=== PATIENT | female | born 1975 | race Hispanic/Latino ===

== ENCOUNTER 2019-02-19 07:00 | Emergency (ER) | payer MEDICARE ==
[~2019-02-19] VITALS: Ht 175.3 cm; Wt 81.6 kg
--- OUTSIDE RECORDS SUMMARY | 2019-02-19 07:04 | XMS REPORT ---
Author Author [facility] Address Unknown Phone Unavailable Care Team Providers Care Stem Roller Operator Name Role Phone Unavailable Unavailable Problems This patient has no known problems. Allergies, Adverse Reactions, Alerts This patient has no known allergies or adverse reactions. Medications This patient has no known medications.
--- OUTSIDE RECORDS SUMMARY | 2019-02-19 07:04 | XMS REPORT | Clinical Summary ---
Author Author [facility] Organization [facility] Address Unknown Phone Unavailable Care Team Providers Care Barrel Inspector Tight Name Role Phone Maricruz Carranza MD PCP Allergies Comments Active Allergy Reactions Severity Noted Date Hydrocodone Rash, Nausea High 11/05/2010 And Vomiting, GI Intolerance vomitting Penicillins GI 03/04/2016 Intolerance Nausea and vomiting Metoclopramide Hcl GI 03/04/2016 Intolerance Medications End Date Status Medication Sig Dispensed Refills Start Date Active atorvastatin (LIPITOR) 80 Take 1 tablet 90 tablet 3 MG tabletIndications: (80 mg total) 8 Other hyperlipidemia by mouth nightly. 07/15/2019 Active aspirin (ECOTRIN) 81 MG Take 1 tablet 100 tablet 3 enteric coated tablet (81 mg total) 8 by mouth daily. Active rivaroxaban (XARELTO) 2.5 Take 2.5 mg 0 mg tablet tablet by mouth 2 (two) times a day. Active belimumab (BENLYSTA IV) Infuse into a 0 venous catheter every 30 (thirty) days. Active alendronate (FOSAMAX) 70 Take 70 mg by 0 MG tablet mouth every 7 days. Take in the morning with a full glass of water on an empty stomach, do NOT take anything else by mouth or lie down for the next 30 min. Friday Active levocetirizine (XYZAL) 5 Take 5 mg by 0 MG tablet mouth every evening. 01/18/2020 Active ipratropium (ATROVENT) Take 2.5 mL 300 mL 11 0.02 % nebulizer (0.5 mg 9 solutionIndications: total) by Pneumonia due to nebulization organism, Moderate 4 (four) persistent reactive times a day. airway disease with acute exacerbation 07/21/2019 Active traMADol (ULTRAM) 50 mg Take 1 tablet 20 tablet 0 tablet (50 mg total) 9 by mouth every 6 (six) hours as needed for moderate pain for up to 180 days. Active predniSONE (DELTASONE) 5 0 02/10/201 mg tablet 9 04/01/2018 Discontinued alendronate (FOSAMAX) 70 Take 70 mg by 0 MG tablet mouth once a week. On sundays06/04/2018 Discontinued XARELTO 20 mg tablet TAKE 1 TABLET 90 tablet 3 BY MOUTH 7 DAILY 04/15/2018 Discontinued melatonin 3 mg tablet Take 1 tablet 90 tablet 3 (3 mg total) 7 by mouth nightly. 04/15/2018 Discontinued atorvastatin (LIPITOR) 80 Take 1 tablet 30 tablet 2 MG tablet (80 mg total) 8 by mouth nightly. 04/08/2018 Discontinued predniSONE (DELTASONE) 5 TAKE 2 120 tablet 0 201 mg tablet TABLETS BY 8 MOUTH DAILY 12/23/2018 Discontinued alendronate (FOSAMAX) 70 Take 1 tablet 13 tablet 3 MG tablet (70 mg total) 8 by mouth once a week. On sundays04/13/2018 Discontinued predniSONE (DELTASONE) 5 Take 2 120 tablet 1 mg tablet tablets (10 8 mg total) by mouth daily. 09/24/2018 Discontinued predniSONE (DELTASONE) 5 TAKE 2 120 tablet 0 201 mg tablet TABLETS BY 8 MOUTH DAILY 07/15/2018 Discontinued atorvastatin (LIPITOR) 80 TAKE 1 TABLET 30 tablet 1 MG tablet (80 MG TOTAL) 8 BY MOUTH NIGHTLY. 07/15/2018 Discontinued XARELTO 20 mg tablet TAKE ONE (1) 30 tablet 11 TABLET(S) BY 8 MOUTH DAILY. 12/23/2018 Discontinued levocetirizine (XYZAL) 5 TAKE ONE (1) 0 MG tablet TABLET(S) BY 8 MOUTH EVERY EVENING. 09/25/2018 Discontinued predniSONE (DELTASONE) 5 Take 2 120 tablet 0 mg tablet tablets (10 8 mg total) by mouth daily. 12/23/2018 Discontinued valACYclovir (VALTREX) 0 1000 MG tablet 8 11/20/2018 Discontinued predniSONE (DELTASONE) 5 TAKE TWO (2) 120 tablet 0 09/25/201 mg tablet TABLET(S) BY 9 MOUTH DAILY. 10/29/2018 doxycycline (VIBRAMYCIN) Take 1 14 capsule 0 100 MG capsule (100 9 capsuleIndications: Acute mg total) by non-recurrent sinusitis, mouth 2 (two) unspecified location times a day for 7 days. 12/23/2018 Discontinued clemastine (TAVIST) 2.68 Take 1 tablet 30 tablet 0 mg tabletIndications: (2.68 mg 9 Upper respiratory tract total) by infection, unspecified mouth 2 (two) type times a day as needed (for drainage). Can take 1/2 tablet if has sedation. 11/01/2018 benzonatate (TESSALON) Take 1 30 capsule 0 200 MG capsule (200 9 capsuleIndications: Upper mg total) by respiratory tract mouth 3 infection, unspecified (three) times type a day as needed for cough for up to 10 days. 12/23/2018 Discontinued ezetimibe (ZETIA) 10 mg Take 1 tablet 90 tablet 3 tablet (10 mg total) 9 by mouth daily. 12/23/2018 Discontinued predniSONE (DELTASONE) 5 TAKE TWO (2) 120 tablet 0 mg tablet TABLET(S) BY 9 MOUTH DAILY. 02/17/2019 Discontinued predniSONE (DELTASONE) Take 2.5 mg 0 2.5 mg tablet by mouth daily. 01/08/2019 amoxicillin-pot Take 1 tablet 20 tablet 0 clavulanate (AUGMENTIN) by mouth 2 9 875-125 mg per tablet (two) times a day for 10 days. 01/18/2019 Discontinued ipratropium-albuterol Take 3 mL by 360 mL 0 (DUO-NEB) 0.5-2.5 mg/3 mL nebulization 9 nebulizer every 4 (four) hours while awake for 30 days. 01/22/2019 Discontinued sodium chloride 3 % Take 4 mL by 750 mL 12 nebulizer nebulization 9 solutionIndications: as needed for Pneumonia due to cough. organism, Moderate persistent reactive airway disease with acute exacerbation 01/29/2019 celecoxib (CeleBREX) 200 Take 1 14 capsule 0 05/17/201 MG capsule capsule (200 9 mg total) by mouth 2 (two) times a day for 7 days. Active Problems Problem Noted Date Shortness of breath 01/12/2019 Overview: It is unclear what her shortness of breath is directly related to however suspect it is multi-factorial Her PFT's reveal a mixed restrictive and obstructive defect with a reduced DLCO as well. Given her history of SLE, there is concern for ILD however this is not noted on her recent CT chest. VQ scan was negative and echocardiogram was noted to have LVEF of 60-65% with normal RV function. PASP not commended on. She underwent exercise stress test and exercised to 63%. Sniff test did reveal decreased diaphragmatic excursion without paralysis. Unclear what the etiology of this is. However it could potentially explain the restrictive defect noted on her PFT. There is concern that her shortness of breath may also be related to a progressive neuromuscular disease process. - Plan to check Spirometry with pre and post BD effect, MIPs/MEPS and MVV to evaluate respiratory muscle force. If significant decrease in muscle for is noted, then would consider working up neuro-muscular disease process. -Would also consider ENT evaluation for vocal cord dysfunction as well. PNA (pneumonia) 12/24/2018 Pneumonia of both lower lobes due to infectious organism 12/23/2018 Overview: Presented with cough productive of sputum and was noted on CT chest to have a consolidation consistent with broncho-pulmonary pneumonia on CT chest 12/18. Repeat CT PE noted stable changes as well. After discharge from hospital, PCP ordered CT abdomen/pelvis to evaluate for splenomegaly. Lung bases on that CT reveals atelectasis of RLL, RML and LLL. -There is concern for organizing PNA -Plan for bronchoscopy with BAL on 01/15/19 Dysarthria 12/07/2017 ASHU (obstructive sleep apnea) 11/28/2016 Overview: Was recently diagnosed with ASHU after presenting with headaches. Sleep study was ordered by Dr. Littlejohn and patient completed it at [facility]. AHI was noted to be 8.3, she is currently on CPAP 10 mmHG with nasal mask She finds it difficult to tolerate however attempts to use at least 4-6 hours at night. Advised her to use during daytime naps as wel. 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 Gaviria -On prednisone 2.5 mg and Benlysta -Rivaroxaban Arthritis 03/04/2016 Pleurisy 03/04/2016 Overview: -Pleurisy is associated with coughing. -Advised patient use ibuprofen as needed for pain. 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 -She has residual speech impairment. -She is followed by Dr. Eron Goodwin's disease 03/04/2016 Overview: ? Dry eye 03/04/2016 Resolved Problems Problem Noted Date Resolved Date Pericarditis 03/04/2016 07/16/2018 Encounters Care Team Description Date Type Specialty Mariluz Gaviria MD Systemic lupus erythematosus, unspecified SLE type, unspecified organ involvement status (HCC) (Primary Dx) 02/17/2019 Infusion Rheumatology Mariluz Gaviria MD 02/11/2019 Orders Only Rheumatology Otilia Salguero MD 01/28/2019 Orders Only Pulmonology Mariluz Gaviria MD 01/24/2019 Orders Only Rheumatology Mariluz Gaviria MD Systemic lupus erythematosus, unspecified SLE type, unspecified organ involvement status (HCC) (Primary Dx); Chest pain on breathing; Arthritis 01/22/2019 Office Visit Rheumatology Maria Antonia Hutchinson MD Pneumonia due to organism (Primary Dx); Moderate persistent reactive airway disease with acute exacerbation 01/18/2019 Orders Only Pulmonology Otilia Salguero MD BRONCHOSCOPY W/ BAL 01/15/2019 Surgery Pulmonology Otilia Salguero MD Shortness of breath (Primary Dx); Systemic lupus erythematosus, unspecified SLE type, unspecified organ involvement status (HCC); ASHU (obstructive sleep apnea); Pleurisy; Cerebrovascular accident (CVA), unspecified mechanism (HCC); Pneumonia of both lower lobes due to infectious organism (HCC); Fahr's disease (HCC); Dysarthria; Dry eye; Pseudobulbar affect; 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; Generalized headache 01/15/2019 Hospital Pulmonology Encounter Mariluz Gaviria MD 01/14/2019 Orders Only Rheumatology Mariluz Gaviria MD 01/14/2019 Orders Only Rheumatology Karri Littlejohn MD Myasthenia (HCC) (Primary Dx) 01/13/2019 Orders Only Neurology Otilia Salguero MD Systemic lupus erythematosus, unspecified SLE type, unspecified organ involvement status (HCC); Shortness of breath 01/12/2019 Hospital Pulmonology Encounter Maria Antonia Hutchinson MD Shortness of breath (Primary Dx); Systemic lupus erythematosus, unspecified SLE type, unspecified organ involvement status (HCC); ASHU (obstructive sleep apnea); Pleurisy; Cerebrovascular accident (CVA), unspecified mechanism (HCC); Pneumonia of both lower lobes due to infectious organism (HCC); Fahr's disease (HCC); Dysarthria 01/12/2019 Office Visit Pulmonology Otilia Salguero MD 01/12/2019 Orders Only Pulmonology Maria Antonia Hutchinson MD 01/12/2019 Orders Only Pulmonology Mariluz Gaviria MD 12/28/2018 Orders Only Oncology Bal King DO Bryant, Ronald, MD Pneumonia of both lower lobes due to infectious organism (HCC) (Primary Dx) 12/22/2018 [facility] General Internal Medicine - Encounter 12/29/2018 Otilia Salguero MD Shortness of breath 12/18/2018 Hospital Radiology Encounter Otilia Salguero MD Shortness of breath 12/18/2018 Hospital Pulmonology Encounter Otilia Salguero MD Shortness of breath 12/18/2018 Hospital Pulmonology Encounter Jax Slaughter MA Shortness of breath (Primary Dx) 12/14/2018 Orders Only Pulmonology Mariluz Gaviria MD Systemic lupus erythematosus, unspecified SLE type, unspecified organ involvement status (HCC) (Primary Dx) 11/25/2018 Infusion Rheumatology Mariluz Gaviria MD 11/20/2018 Refill Rheumatology Mariluz Gaviria MD Systemic lupus erythematosus, unspecified SLE type, unspecified organ involvement status (HCC) (Primary Dx) 10/30/2018 Infusion Rheumatology Amos Rios, [facility] 10/30/2018 Orders Only Pharmacy Karri Littlejohn MD Fahr's disease (HCC) (Primary Dx); Cerebrovascular accident (CVA) due to other mechanism; ASHU (obstructive sleep apnea); Mixed hyperlipidemia 10/26/2018 Office Visit Neurology Finesse Lux MD Acute non-recurrent sinusitis, unspecified location (Primary Dx); BMI 26.0-26.9,adult; Upper respiratory tract infection, unspecified type 10/22/2018 Office Visit Internal Medicine Mariluz Gaviria MD 10/22/2018 Orders Only Oncology Mariluz Gaviria MD 10/01/2018 Orders Only Rheumatology Joan Giraldo, [facility] 09/30/2018 Orders Only Pharmacy Lawanda Gordon 09/30/2018 Telephone Neurology Mariluz Gaviria MD 09/25/2018 Refill Rheumatology Mariluz Gaviria MD Systemic lupus erythematosus, unspecified SLE type, unspecified organ involvement status (HCC) (Primary Dx) 09/24/2018 Infusion Rheumatology Amos Rios, [facility] 09/24/2018 Orders Only Pharmacy Mariluz Gaviria MD Systemic lupus erythematosus, unspecified SLE type, unspecified organ involvement status (HCC) (Primary Dx) 08/27/2018 Infusion Rheumatology Mariluz Gaviria MD Systemic lupus erythematosus, unspecified SLE type, unspecified organ involvement status (HCC) (Primary Dx) 08/13/2018 Infusion Rheumatology Mariluz Gaviria MD 08/13/2018 Orders Only Rheumatology Lawanda Gordon J 08/05/2018 Telephone Neurology Karri Littlejohn MD Familial combined hyperlipidemia (Primary Dx) 08/04/2018 Lab Lab Karri Littlejohn MD Cerebrovascular accident (CVA) due to other mechanism 08/04/2018 Hospital Neurology Encounter Mariluz Gaviria MD Systemic lupus erythematosus, unspecified SLE type, unspecified organ involvement status (HCC) (Primary Dx) 07/29/2018 Infusion Rheumatology Mariluz Gaviria MD 07/27/2018 Orders Only Rheumatology Mariluz Gaviria MD 07/27/2018 Refill Rheumatology Daniel Tee MA 07/21/2018 Telephone Rheumatology Mariluz Gaviria MD Systemic lupus erythematosus, unspecified SLE type, unspecified organ involvement status (HCC) (Primary Dx); High risk medication use; Arthritis; On corticosteroid therapy 07/16/2018 Office Visit Rheumatology Mariluz Gaviria MD 07/16/2018 Orders Only Rheumatology Daniel Tee MA Systemic lupus erythematosus, unspecified SLE type, unspecified organ involvement status (HCC) (Primary Dx) 07/16/2018 Orders Only Rheumatology Claire Dillon MA Systemic lupus erythematosus with organ system involvement (HCC) (Primary Dx); 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) 07/16/2018 Orders Only Rheumatology Karri Littlejohn MD Other hyperlipidemia (Primary Dx); Cerebrovascular accident (CVA) due to other mechanism; Fahr's disease (HCC); ASHU (obstructive sleep apnea) 07/15/2018 Office Visit Neurology Karri Littlejohn MD 07/15/2018 Refill Neurology Karri Littlejohn MD 06/04/2018 Refill Neurology Yari Russell MD 04/16/2018 Orders Only Neurology Mariluz Gaviria MD Systemic lupus erythematosus, unspecified SLE type, unspecified organ involvement status (Primary Dx); High risk medication use; Dysarthria 04/15/2018 Office Visit Rheumatology Karri Littlejohn MD 04/15/2018 Refill Neurology Karri Littlejohn MD Anemia, unspecified type (Primary Dx) 04/13/2018 Orders Only Neurology Mariluz Gaviria MD 04/11/2018 Refill Rheumatology Claire Dillon MA 04/08/2018 Refill Rheumatology Karri Littlejohn MD 04/01/2018 Orders Only Neurology Karri Littlejohn MD 04/01/2018 Refill Neurology after 02/18/2018 Immunizations Name Dates Previously Given Next Due PPD Test 06/17/2017, 04/07/2014 Family History Medical History Relation Name Comments Dermatomyositis Father Dermatomyositis and CLL No Known Problems Mother Relation Name Status Comments Father Mother Social History Date Tobacco Use Types Packs/Day Years Used Never Smoker Smokeless Tobacco: Never Used Alcohol Use Drinks/Week oz/Week Comments No not found Sex Assigned at Date Recorded Not on file Industry Job Start Date Occupation Not on file Not on file Not on file Travel End Travel History Travel Start No recent travel history available. Last Filed Vital Signs Time Taken Vital Sign Reading 02/17/2019 11:22 AM CDT Blood Pressure 97/64 02/17/2019 11:22 AM CDT Pulse 59 02/17/2019 11:22 AM CDT Temperature 36.1 C (96.9 F) 02/17/2019 11:22 AM CDT Respiratory Rate 20 02/17/2019 11:22 AM CDT Oxygen Saturation 99% - Inhaled Oxygen - Concentration 02/17/2019 9:11 AM CDT Weight 78.5 kg (173 lb) 02/17/2019 9:11 AM CDT Height 175.3 cm (5' 9") 02/17/2019 9:11 AM CDT Body Mass Index 25.55 Plan of Treatment Care Team Description Date [place] [address] [id number] 03/17/2019 Infusion Rheumatology Volpi, Karri Montanez MD [address] [address] 04/26/2019 Office Visit [place] [address] [id number] 05/26/2019 Office Visit Rheumatology Health Maintenance Due Date Last Done Comments INFLUENZA VACCINE 04/08/2019 06/17/2014 Procedures Comments Procedure Name Priority Date/Time Associated Diagnosis C4 COMPLEMENT COMPONENT Routine 01/22/2019 Systemic lupus 9:59 AM CDT erythematosus, unspecified SLE type, unspecified organ involvement status (HCC) C3 COMPLEMENT COMPONENT Routine 01/22/2019 Systemic lupus 9:59 AM CDT erythematosus, unspecified SLE type, unspecified organ involvement status (HCC) DNA AB SCREEN Routine 01/22/2019 Systemic lupus 9:59 AM CDT erythematosus, unspecified SLE type, unspecified organ involvement status (HCC) CYTOLOGY Routine 01/15/2019 (NON-GYNECOLOGICAL) 3:05 PM CDT REQUEST CYTOLOGY Routine 01/15/2019 (NON-GYNECOLOGICAL) 3:05 PM CDT REQUEST MISCELLANEOUS REFERRAL Routine 01/15/2019 TEST 11:04 AM CDT VARICELLA ZOSTER BY PCR Routine 01/15/2019 11:04 AM CDT CYTOMEGALOVIRUS BY PCR Routine 01/15/2019 11:04 AM CDT BAL CELL COUNT AND Routine 01/15/2019 DIFFERENTIAL 11:04 AM CDT VARICELLA ZOSTER BY PCR Routine 01/15/2019 11:04 AM CDT CYTOMEGALOVIRUS BY PCR Routine 01/15/2019 11:04 AM CDT GRAM STAIN Routine 01/15/2019 11:04 AM CDT RESPIRATORY CULTURE Routine 01/15/2019 11:04 AM CDT GRAM STAIN Routine 01/15/2019 11:04 AM CDT RESPIRATORY CULTURE Routine 01/15/2019 11:04 AM CDT FUNGUS SMEAR Routine 01/15/2019 11:04 AM CDT AFB STAIN Routine 01/15/2019 11:04 AM CDT FUNGUS SMEAR Routine 01/15/2019 11:04 AM CDT AFB STAIN Routine 01/15/2019 11:04 AM CDT RESPIRATORY PATHOGEN Routine 01/15/2019 PANEL 11:04 AM CDT LEGIONELLA CULTURE Routine 01/15/2019 11:04 AM CDT NOCARDIA CULTURE Routine 01/15/2019 11:04 AM CDT FUNGUS CULTURE Routine 01/15/2019 11:04 AM CDT AFB CULTURE Routine 01/15/2019 11:04 AM CDT RESPIRATORY PATHOGEN Routine 01/15/2019 PANEL 11:04 AM CDT LEGIONELLA CULTURE Routine 01/15/2019 11:04 AM CDT NOCARDIA CULTURE Routine 01/15/2019 11:04 AM CDT FUNGUS CULTURE Routine 01/15/2019 11:04 AM CDT AFB CULTURE Routine 01/15/2019 11:04 AM CDT BRONCHOSCOPY 01/15/2019 Systemic lupus 10:00 AM CDT erythematosus, unspecified SLE type, unspecified organ involvement status (HCC) Shortness of breath SPIROMETRY PRE AND POST Routine 01/12/2019 Systemic lupus WITH BRONCHILATOR, 1:16 PM CDT erythematosus, MIPS/MEPS unspecified SLE type, unspecified organ involvement status (HCC) Shortness of breath NM LUNG VENTILATION Routine 12/28/2018 PERFUSION 12:37 PM CDT FL FLUOROSCOPY OF Routine 12/28/2018 DIAPHRAGM NO FILMS 11:06 AM CDT DNA AB TITER Routine 12/28/2018 10:38 AM CDT DNA AB SCREEN Routine 12/28/2018 10:38 AM CDT C4 COMPLEMENT COMPONENT Routine 12/28/2018 10:38 AM CDT C3 COMPLEMENT COMPONENT Routine 12/28/2018 10:38 AM CDT C-REACTIVE PROTEIN Routine 12/28/2018 10:38 AM CDT SEDIMENTATION RATE Routine 12/28/2018 10:38 AM CDT SPUTUM CULTURE Routine 12/28/2018 10:20 AM CDT GRAM STAIN Routine 12/28/2018 10:[address] ANGIOGRAM PE CHEST Routine 12/27/2018 5:53 PM CDT NM MYOCARDIAL PERFUSION Routine 12/27/2018 STRESS ONLY 12:07 PM CDT CV STRESS TEST NUCLEAR Routine 12/27/2018 CARDIO 12:07 PM CDT D-DIMER Routine 12/26/2018 5:00 PM CDT ESTIMATED GFR Routine 12/26/2018 5:58 AM CDT MAGNESIUM LEVEL Routine 12/26/2018 5:58 AM CDT BASIC METABOLIC PANEL Routine 12/26/2018 5:58 AM CDT HC COMPLETE BLD COUNT Routine 12/26/2018 W/AUTO DIFF 5:58 AM CDT HC COMPLETE BLD COUNT Routine 12/25/2018 W/AUTO DIFF 12:55 AM CDT ESTIMATED GFR Routine 12/25/2018 12:44 AM CDT MAGNESIUM LEVEL Routine 12/25/2018 12:44 AM CDT BASIC METABOLIC PANEL Routine 12/25/2018 12:44 AM CDT ECHOCARDIOGRAM 2D Routine 12/24/2018 COMPLETE W MMODE SPECTRAL 5:15 PM CDT COLOR DOPPLER (55038) US DUPLEX VENOUS LOWER Routine 12/24/2018 EXTREMITY BILATERAL 12:13 PM CDT FL MODIFIED BARIUM Routine 12/24/2018 SWALLOW 11:07 AM CDT HC COMPLETE BLD COUNT Routine 12/24/2018 W/AUTO DIFF 1:30 AM CDT ESTIMATED GFR Routine 12/24/2018 1:29 AM CDT BASIC METABOLIC PANEL Routine 12/24/2018 1:29 AM CDT IGG SUBCLASSES Routine 12/23/2018 9:30 PM CDT IMMUNOGLOBULIN G Routine 12/23/2018 6:33 PM CDT XR CHEST 1 VW Routine 12/23/2018 4:05 PM CDT IMMUNOGLOBULIN E Routine 12/23/2018 3:47 PM CDT IMMUNOGLOBULIN G Routine 12/23/2018 3:47 PM CDT PERIPHERAL SMEAR Routine 12/23/2018 6:30 AM CDT LACTIC ACID LEVEL, SEPSIS Timed 12/23/2018 - NOW AND REPEAT 2X EVERY 6:30 AM CDT 3 HOURS STREPTOCOCCUS PNEUMONIAE Routine 12/23/2018 URINARY ANTIGEN 6:30 AM CDT LEGIONELLA URINARY Routine 12/23/2018 ANTIGEN 6:30 AM CDT BLOOD CULTURE, AEROBIC & Routine 12/23/2018 ANAEROBIC 12:50 AM CDT ESTIMATED GFR STAT 12/23/2018 12:10 AM CDT TROPONIN STAT 12/23/2018 12:10 AM CDT LACTIC ACID LEVEL, SEPSIS STAT 12/23/2018 - NOW AND REPEAT 2X EVERY 12:10 AM CDT 3 HOURS HCG QUALITATIVE, URINE STAT 12/23/2018 SCREEN 12:10 AM CDT URINALYSIS SCREEN AND STAT 12/23/2018 MICROSCOPY, WITH REFLEX 12:10 AM CDT TO CULTURE PARTIAL THROMBOPLASTIN STAT 12/23/2018 TIME (PTT) 12:10 AM CDT PROTHROMBIN TIME WITH INR STAT 12/23/2018 12:10 AM CDT HC COMPLETE BLD COUNT STAT 12/23/2018 W/AUTO DIFF 12:10 AM CDT COMPREHENSIVE METABOLIC STAT 12/23/2018 PANEL 12:10 AM CDT RESPIRATORY PATHOGEN Routine 12/23/2018 PANEL 12:10 AM CDT URINE CULTURE STAT 12/23/2018 12:10 AM CDT INFLUENZA ANTIGEN TEST, Routine 12/23/2018 REFLEX NEGATIVE TO RPP 12:10 AM CDT BLOOD CULTURE, AEROBIC & Routine 12/23/2018 ANAEROBIC 12:10 AM CDT ECG ED PRELIMINARY Routine 12/22/2018 INTERPRETATION 11:29 PM CDT ECG 12-LEAD STAT 12/22/2018 11:[address] CHEST WO CONTRAST Routine 12/18/2018 Shortness of breath 2:18 PM CDT SPIROMETRY, DIFFUSION, Routine 12/18/2018 Shortness of breath LUNG VOLUMES 11:39 AM CDT LIPID PANEL Routine 08/04/2018 Familial combined 9:29 AM [employer]GY BR[employer]ER hyperlipidemia EEG AWAKE/DROWSY LESS Routine 08/04/2018 Cerebrovascular accident THAN 41 MIN 8:47 AM ENERGY BROKER (CVA) due to other mechanism C4 COMPLEMENT COMPONENT Routine 07/16/2018 Drug-induced systemic 11:03 AM EN[employer]GY BR[employer]ER lupus erythematosus with other organ involvement (HCC) Systemic lupus erythematosus with organ system involvement (HCC) C3 COMPLEMENT COMPONENT Routine 07/16/2018 Drug-induced systemic 11:03 AM EN[employer]GY [employer]ER lupus erythematosus with other organ involvement (HCC) Systemic lupus erythematosus with organ system involvement (HCC) DNA AB SCREEN Routine 07/16/2018 Drug-induced systemic 11:03 AM [employer]GY [employer]ER lupus erythematosus with other organ involvement (HCC) Systemic lupus erythematosus with organ system involvement (HCC) CBC WITH PLATELET AND Routine 07/16/2018 Drug-induced systemic DIFFERENTIAL 11:03 AM [employer]GY BR[employer]ER lupus erythematosus with other organ involvement (HCC) [id number] Routine 04/16/2018 MICROSCOPIC EXAMINATION Routine 04/15/2018 9:32 AM CDT C4 COMPLEMENT COMPONENT Routine 04/15/2018 Systemic lupus 9:32 AM CDT erythematosus, unspecified SLE type, unspecified organ involvement status C3 COMPLEMENT COMPONENT Routine 04/15/2018 Systemic lupus 9:32 AM CDT erythematosus, unspecified SLE type, unspecified organ involvement status DNA AB SCREEN Routine 04/15/2018 Systemic lupus 9:32 AM CDT erythematosus, unspecified SLE type, unspecified organ involvement status URINALYSIS, AUTOMATED Routine 04/15/2018 Systemic lupus WITH MICROSCOPY 9:32 AM CDT erythematosus, unspecified SLE type, unspecified organ involvement status C-REACTIVE PROTEIN Routine 04/15/2018 Systemic lupus 9:32 AM CDT erythematosus, unspecified SLE type, unspecified organ involvement status SEDIMENTATION RATE Routine 04/15/2018 Systemic lupus 9:32 AM CDT erythematosus, unspecified SLE type, unspecified organ involvement status COMPREHENSIVE METABOLIC Routine 04/15/2018 Systemic lupus PANEL 9:32 AM CDT erythematosus, unspecified SLE type, unspecified organ involvement status CBC WITH PLATELET AND Routine 04/15/2018 Systemic lupus DIFFERENTIAL 9:32 AM CDT erythematosus, unspecified SLE type, unspecified organ involvement status after 02/18/2018 Results * DNA Ab screen (01/22/2019 9:59 AM CDT) Only the most recent of 4 results within the time period is included. DNA ds antibody 94 (H) 0 - 9 IU/mL [facility] Comment: Negative<5 Equivocal5 - 9 Positive>9 Specimen Blood Narrative Performed At Performed at:[address] [place] [address] [id number] [employer] Dr[employer] Operator: Jerry Rosa MD, Phone:[phone] Performing Organization Address [facility] Phone Number [facility] * C3 complement component (01/22/2019 9:59 AM CDT) Only the most recent of 4 results within the time period is included. C3 complement 100 82 - 167 mg/dL [facility] Specimen Blood Narrative Performed At Performed at:[facility] [address] [place], [place] [id number] [employer] Operator: Jerry Rosa MD, Phone:[phone] Performing Organization Address [facility] Phone Number [facility] * C4 complement component (01/22/2019 9:59 AM CDT) Only the most recent of 4 results within the time period is included. Pathologist [facility] C4 complement 7 (L) 14 - 44 mg/dL [facility] Specimen Blood Narrative Performed At Performed at: [facility] [address] [place], [place] [id number] [employer] Operator: Jerry Rosa MD, Phone:[phone] Performing Organization Address City/[facility]/Zipcode Phone Number [facility] * Cytology (non-gynecological) request (01/15/2019 3:05 PM CDT) Only the most recent of 2 results within the time period is included. Pathologist [facility] DEPARTMENT OF PATHOLOGY AND GENOMIC MEDICINE Cytology See link below for PDF Lab [facility] DEPARTMENT (non-gynecologi Report OF PATHOLOGY alfonso) report AND GENOMIC MEDICINE Result status This is Supplemental Report [facility] DEPARTMENT for [id number] OF PATHOLOGY AND GENOMIC MEDICINE Specimen Performing Organization Address [facility] Phone Number [facility] DEPARTMENT OF [address] [place] [address] PATHOLOGY AND GENOMIC MEDICINE * Respiratory culture (01/15/2019 11:04 AM CDT) Only the most recent of 2 results within the time period is included. [facility] Respiratory Normal oral adeel isolated. [place] culture isolate Comment: [facility] Specimen Information [facility] Specimen Source: Bronchial alveolar lavage Specimen Site: RML (right middle lobe) Specimen Bronchial alveolar lavage - RML (right middle lobe) Performing Organization Address [facility] Phone Number [facility] [place] [address] PATHOLOGY AND GENOMIC MEDICINE [place] [facility] [address] [place] [address] HOSPITAL * Fungus smear (01/15/2019 11:04 AM CDT) Only the most recent of 2 results within the time period is included. [facility] Fungus smear No fungi observed. [place] Comment: [facility] Specimen Information [facility] Specimen Source: Bronchial Washing Specimen Site: RML (right middle lobe) Specimen Bronchial washing - RML (right middle lobe) Performing Organization Address [facility] Phone Number [facility] DEPARTMENT OF [address] [place] [address] PATHOLOGY AND GENOMIC MEDICINE [place] [facility] [address] [place] [address] * Respiratory pathogen panel (01/15/2019 11:04 AM CDT) Only the most recent of 3 results within the time period is included. Respiratory Positive for [place] pathogen panel Rhinovirus/Enterovirus [facility] Negative for all other pathogens tested: Negative for Adenovirus Negative for Coronavirus HKU1 Negative for Coronavirus NL63 Negative for Coronavirus 229E Negative for Coronavirus OC43 Negative for Human Metapneumovirus Negative for Influenza A Negative for Influenza A/H1 Negative for Influenza A/H3 Negative for Influenza A/H1-2009 Negative for Influenza B Negative for Parainfluenza Virus 1 Negative for Parainfluenza Virus 2 Negative for Parainfluenza Virus 3 Negative for Parainfluenza Virus 4 Negative for Respiratory Syncytial Virus Negative for Bordetella pertussis Negative for Chlamydophila pneumoniae Negative for Mycoplasma pneumoniae This real-time PCR assay detects the presence of nucleic acids (RNA or DNA) for the respiratory pathogens listed. A result of "Not-detected" does not exclude the possibility of the presence of one or more pathogens at concentrations less than the detectable limits of the assa (A) Comment: Specimen Information Specimen Source: Bronchial Washing Specimen Site: RML (right middle lobe) Specimen Bronchial washing - RML (right middle lobe) Performing Organization Address City/State/Zipcode Phone Number [facility] DEPARTMENT OF [address] [place] [address] PATHOLOGY AND GENOMIC MEDICINE [address] * BAL cell count and differential (01/15/2019 11:04 AM CDT) Pathologist [facility] BAL specimen RML BAL [facility] BAL cell count 0.040 m/mL [place] Comment: [facility] Normal ranges: Nonsmokers: HOSPITAL 0.007 - 0.363 Smokers: 0 - 1.31 72% viability Moderate RBCs BAL PAMS 16 % [place] Comment: [facility] Normal ranges: Nonsmokers: 65 HOSPITAL - 100 Smokers: 81 - 100 BAL PMNS 1 % [place] Comment: [facility] Normal ranges: Nonsmokers: 0 - HOSPITAL 3 Smokers: 0 - 2 BAL eosinophils 1 % [place] Comment: [facility] Normal ranges: Nonsmokers: 0 - HOSPITAL 1 Smokers: 0 - 1 BAL lymphs 82 % [place] Comment: [facility] Normal ranges: Nonsmokers: 0 - HOSPITAL 10 Smokers: 0 - 5 Specimen Fluid Performing Organization Address City/[facility]/Zipcode Phone Number [facility] DEPARTMENT OF [address] [place] [address] PATHOLOGY AND GENOMIC MEDICINE [address] * Cytomegalovirus by PCR (01/15/2019 11:04 AM CDT) Only the most recent of 2 results within the time period is included. [facility] Cytomegalovirus Not-Detected Not-Detected IU/mL [place] by PCR [facility] Cytomegalovirus See link below for PDF Lab [place] by PCR ReportComment: Case Number: [facility] [id number] [facility] Specimen Bronchial washing Performing Organization Address City/[facility] Phone Number [facility] [place] [address] PATHOLOGY AND GENOMIC MEDICINE [address] * Varicella zoster by PCR (01/15/2019 11:04 AM CDT) Only the most recent of 2 results within the time period is included. [facility] VZV result Not-Detected Not-Detected [place] copies/mL [facility] Varicella See link below for PDF Lab [place] zoster, pcr ReportComment: Case Number: [facility] [id number] [facility] Specimen Bronchial washing Performing Organization Address [facility] Phone Number [facility] [place] [address] PATHOLOGY AND GENOMIC MEDICINE [address] * Miscellaneous referral test (01/15/2019 11:04 AM CDT) [facility] Misc test name HSV PCR [facility] Misc test SEE NOTE [facility] result Comment: Herpes Simplex Virus by PCR [facility] test code [id number] Herpes Simplex Virus Source BAL RML - - - - - - - - - - - - - - - - - - - - - - - - - - - - - - Herpes Simplex Virus by PCR Not Detected NOT DETECTED - A negative result does not rule out the presence of PCR inhibitors in the patient specimen or assay specific nucleic acid in concentrations below the level of detection by the assay. INTERPRETIVE INFORMATION: Herpes Simplex Virus by PCR Test developed and characteristics determined by [facility]. See Compliance Statement B: [employer]CS Test performed by: [facility] [address] [place], [place] Specimen Narrative Performed At HSV PCR [facility] [id number] BR-WASH ?RML (right middle lobe) Performing Organization Address [facility] Phone Number [facility] [address] [place] [address] [facility] [address] [place] [address] * Nocardia culture (01/15/2019 11:04 AM CDT) Only the most recent of 2 results within the time period is included. Nocardia Unable to complete culture due [place] culture isolate to mould. (A) [facility] Comment: HOSPITAL Specimen Information Specimen Source: Bronchial Washing Specimen Site: RML (right middle lobe) Nocardia Penicillium species (A) [place] culture isolate [facility] Specimen Bronchial washing - RML (right middle lobe) Performing Organization Address [facility] Phone Number [facility] DEPARTMENT OF [address] [place] [address] PATHOLOGY AND GENOMIC MEDICINE [place] [facility] [address] [place] [address] * Legionella culture (01/15/2019 11:04 AM CDT) Only the most recent of 2 results within the time period is included. Legionella No Legionella isolated. [place] culture isolate Comment: [facility] Specimen Information HOSPITAL Specimen Source: Bronchial Washing Specimen Site: RML (right middle lobe) Specimen Bronchial washing - RML (right middle lobe) Performing Organization Address [facility] Phone Number [facility] DEPARTMENT OF [address] [place] [address] PATHOLOGY AND GENOMIC MEDICINE [place] [facility] [address] [place] [address] * Gram stain (01/15/2019 11:04 AM CDT) Only the most recent of 3 results within the time period is included. Gram stain Rare WBC's [place] isolate No organisms seen [facility] Comment: HOSPITAL Specimen Information Specimen Source: Bronchial alveolar lavage Specimen Site: RML (right middle lobe) Specimen Bronchial alveolar lavage - RML (right middle lobe) Performing Organization Address [facility] Phone Number [facility] DEPARTMENT OF [address] [place] [address] PATHOLOGY AND [facility] MEDICINE [place] [facility] [address] [place] [address] HOSPITAL * AFB stain (01/15/2019 11:04 AM CDT) Only the most recent of 2 results within the time period is included. AFB stain No acid fast bacilli (AFB) [place] seen. [facility] Comment: HOSPITAL Specimen Information Specimen Source: Bronchial Washing Specimen Site: RML (right middle lobe) Specimen Bronchial washing - RML (right middle lobe) Performing Organization Address City/[facility] Phone Number [facility] DEPARTMENT OF [address] [place] [address] PATHOLOGY AND [facility] MEDICINE [place] [facility] [address] [place] [address] * Fungus culture (01/15/2019 11:04 AM CDT) Only the most recent of 2 results within the time period is included. Fungus culture Penicillium species (A) [place] isolate Comment: [facility] Specimen Information HOSPITAL Specimen Source: Bronchial Washing Specimen Site: RML (right middle lobe) Fungus culture Dematiaceous Mould [place] isolate Unable to complete culture due [facility] to contamination. [facility] (A) Specimen Bronchial washing - RML (right middle lobe) Performing Organization Address City/[facility] Phone Number [facility] DEPARTMENT OF [address] [place] [address] PATHOLOGY AND [facility] MEDICINE [place] [facility] [address] [place] [address] HOSPITAL * Spirometry pre & post w/ bronchodilator, MIPS/MEPS (01/12/2019 1:16 PM CDT) FEV1 Post 0.70 2.75 - 4.12 L [facility] FEV1/FVC % Post 72.91 73.60 - 92.23 % [facility] FVC Post 0.96 3.33 - 4.95 L [facility] PEF Post 1.35 5.45 - 10.05 L/s [facility] FEF 25-75% Post 0.54 2.12 - 5.16 L/s [facility] FEV1 Pre 0.78 2.75 - 4.12 L [facility] FEV1/FVC % Pre 72.77 73.60 - 92.23 % [facility] FVC Pre 1.07 3.33 - 4.95 L [facility] PEF Pre 1.98 5.45 - 10.05 L/s [facility] FEF 25-75% Pre 0.51 2.12 - 5.16 L/s [facility] FEV1 Predicted 3.44 [facility] FEV1 LLN 2.75 [facility] FEV1 % Pre of 22.6 % [facility] Predicted FEV1 % Post of 20.3 % [facility] Predicted FEV1 % Change -10.0 % [facility] FVC Predicted 4.14 [facility] FVC LLN 3.33 [facility] FVC % Pre of 25.7 % [facility] Predicted FVC % Post of 23.1 % [facility] Predicted FVC % Change -10.1 % [facility] FEV1/FVC % 83 [facility] Predicted FEV1/FVC % LLN 74 [facility] FEV1/FVC % Pre 87.8 % [facility] of Predicted FEV1/FVC % Post 87.9 % [facility] of Predicted FEV1/FVC % 0.2 % [facility] Change FEF 25-75% 3.64 [facility] Predicted FEF 25-75% LLN 2.12 [facility] FEF 25-75% % 14.1 % [facility] Pre of Predicted FEF 25-75% % 14.8 % [facility] Post of Predicted FEF 25-75% % 4.8 % [facility] Change PEF Predicted 7.75 [facility] PEF LLN 5.45 [facility] PEF % Pre of 25.6 % [facility] Predicted PEF % Post of 17.5 % [facility] Predicted PEF % Change -31.8 % [facility] Specimen Narrative Performed At Performing Organization Address City/State/Zipcode Phone Number [facility] [address] [place] [address] * [place] Lung Ventilation Perfusion (12/28/2018 12:37 PM CDT) Specimen Narrative Performed At CLINICAL HISTORY: PE suspectedintermediate probpositive D-dimer [facility] TECHNIQUE: The patient breathed 15-20 mCi of xenon-133 gas through a closed ventilation system while dynamic imaging of the lungs was performed in the posterior and anterior projections. The patient was then injected with 5 mCi of [id number] intravenously, followed by imaging of the lungs in anterior, posterior, and oblique projections. FINDINGS: Large, though somewhat ill-defined perfusion defects are present bilaterally in the lung bases, matched to marked air trapping (obstructive airways disease) on ventilation. A small, nonsegmental perfusion defect is present in the left upper lobe near the aortic arch. Incidental note is made of activity in the bowel secondary, presumably, to recent myocardial perfusion imaging study. IMPRESSION: Low Probability for pulmonary embolism. [facility]-[id number] Procedure Note Interface, Radiology Results Incoming - 12/28/2018 12:52 PM CDT CLINICAL HISTORY: PE suspected intermediate prob positive D-dimer TECHNIQUE: The patient breathed 15-20 mCi of xenon-133 gas through a closed ventilation system while dynamic imaging of the lungs was performed in the posterior and anterior projections. The patient was then injected with 5 mCi of [id number] intravenously, followed by imaging of the lungs in anterior, posterior, and oblique projections. FINDINGS: Large, though somewhat ill-defined perfusion defects are present bilaterally in the lung bases, matched to marked air trapping (obstructive airways disease) on ventilation. A small, nonsegmental perfusion defect is present in the left upper lobe near the aortic arch. Incidental note is made of activity in the bowel secondary, presumably, to recent myocardial perfusion imaging study. IMPRESSION: Low Probability for pulmonary embolism. [facility]-[id number] Performing Organization Address City/State/Zipcode Phone Number [facility] [address] [place] [address] * [place] Fluoroscopy Of Diaphragm No Films (12/28/2018 11:06 AM CDT) Specimen Narrative Performed At EXAMINATION:[place] FLUOROSCOPY OF DIAPHRAGM NO FILMS [facility] CLINICAL HISTORY:Please assess for diaphragm function. paradoxical diaphragm COMPARISON:None. TECHNIQUE: Diaphragms were observed under fluoroscopy during quiet and deep breathing and with sniff testing. [facility] DOSE: 21.1 mGy FINDINGS: There is limited diaphragmatic excursion. There was no paradoxical movement with rapid inspiration to suggest diaphragmatic paralysis. IMPRESSION: Limited diaphragmatic excursion without paradoxical movement. [facility]-[id number] Procedure Note Interface, Radiology Results Incoming - 12/28/2018 12:03 PM CDT EXAMINATION: [place] FLUOROSCOPY OF DIAPHRAGM NO FILMS CLINICAL HISTORY: Please assess for diaphragm function. paradoxical diaphragm COMPARISON: None. TECHNIQUE: Diaphragms were observed under fluoroscopy during quiet and deep breathing and with sniff testing. RADIATION DOSE: 21.1 mGy FINDINGS: There is limited diaphragmatic excursion. There was no paradoxical movement with rapid inspiration to suggest diaphragmatic paralysis. IMPRESSION: Limited diaphragmatic excursion without paradoxical movement. [facility]-[id number] Performing Organization Address City/[facility]/[place] [address] * DNA Ab titer (12/28/2018 10:38 AM CDT) [facility] DNA Ab titer 1:1280 (A) Not-Detected [facility] Specimen Blood Performing Organization Address [facility]/Zipcode Phone Number [facility] [place] [address] PATHOLOGY AND [facility] MEDICINE [address] * Sedimentation rate (12/28/2018 10:38 AM CDT) Only the most recent of 2 results within the time period is included. [facility] Sedimentation 39 (H) 0 - 20 mm/hr [facility] Specimen Blood Performing Organization Address [facility] Phone Number [facility] [place] [address] PATHOLOGY AND [facility] MEDICINE [address] * C-reactive protein (12/28/2018 10:38 AM CDT) Only the most recent of 2 results within the time period is included. [facility] CRP 1.16 (H) 0.00 - 0.50 mg/dL [facility] Specimen Plasma specimen Performing Organization Address [facility] Phone Number [facility] [place] [address] PATHOLOGY AND GENOMIC MEDICINE [address] * Sputum culture (12/28/2018 10:20 AM CDT) [facility] Sputum culture Normal oral adeel isolated. [place] isolate Comment: [facility] Specimen Information HOSPITAL Specimen Source: Sputum Specimen Site: Expectorated Specimen Sputum - Expectorated Performing Organization Address [facility] Phone Number [facility] [place] [address] PATHOLOGY AND [facility]IC[facility] [address] * CT Angiogram Pe Chest (12/27/2018 5:53 PM CDT) Specimen Narrative Performed At EXAMINATION: [facility] CT ANGIOGRAM PE CHEST CLINICAL HISTORY: PE suspectedintermediate probpositive D-dimer TECHNIQUE: CT angiographic images of the chest were obtained during intravenous administration of iodinated contrast. Computerized reformatted images and 3-D MIP images were also obtained and archived (CT pulmonary embolus protocol).Automatic exposure control or iterative reconstruction techniques used to reduce dose. COMPARISON: 12/18/2018 IMPRESSION: 1.Pulmonary arterial tree well opacified with no filling defects identified to suggest acute pulmonary embolism. 2.No significant mediastinal or hilar lymphadenopathy. No significant pleural or pericardial effusions. Main pulmonary artery measuring 3.3 cm in diameter again appears enlarged. 3.Persistent right lung basilar volume loss and consolidation compatible with underlying pneumonia similar to prior study. No new consolidations are seen. Small amount of mucus is noted within the central airways. [facility]-[id number] Procedure Note Interface, Radiology Results Incoming - 12/27/2018 6:05 PM CDT EXAMINATION: CT ANGIOGRAM PE CHEST CLINICAL HISTORY: PE suspected intermediate prob positive D-dimer TECHNIQUE: CT angiographic images of the chest were obtained during intravenous administration of iodinated contrast. Computerized reformatted images and 3-D MIP images were also obtained and archived (CT pulmonary embolus protocol).Automatic exposure control or iterative reconstruction techniques used to reduce dose. COMPARISON: 12/18/2018 IMPRESSION: 1. Pulmonary arterial tree well opacified with no filling defects identified to suggest acute pulmonary embolism. 2. No significant mediastinal or hilar lymphadenopathy. No significant pleural or pericardial effusions. Main pulmonary artery measuring 3.3 cm in diameter again appears enlarged. 3. Persistent right lung basilar volume loss and consolidation compatible with underlying pneumonia similar to prior study. No new consolidations are seen. Small amount of mucus is noted within the central airways. [facility]-[id number] Performing Organization Address City/State/Zipcode Phone Number [facility] [address] [place] [address] * Cv stress test (12/27/2018 12:07 PM CDT) Resting HR 73 [facility] Resting BP 122 [facility] Peak MET 1.0 [facility] Achieved Protocol Name ROSETTE [facility] MUSE Time in 00:01:00 [facility] Exercise Phase Max Systolic BP 127 [facility] Max Diastolic 71 [facility] BP Max Heart Rate 113 [facility] Max Predicted 178 [facility] Heart Rate Target HR (220 - Age)*100% [facility] M[facility] Formula Test Indication chest pain [facility] MUSE Arrhy During Ex [facility] ECG Interp [facility] Before EX ECG Interp [facility] During Ex Ex Summary [facility] Comment Overall HR [facility] M[facility] Response to Exercise Overall BP [facility] Response To Exercise Reason for [facility] Termination Stress Test Waveform interpreted in report [facility] MUSE Impression associated with image study. No interpretation is provided as part of this Stress ECG report.-Electronically Signed By Brody VALDES, Va Hedrick ([id number]), editor trade journal Sal Yancey ([id number]) on 12/27/2018 1:02:39 PM Specimen Narrative Performed At Performing Organization Address City/State/Zipcode Phone Number [facility] MUSE [address] [place] [address] * Nm myocardial perfusion (12/27/2018 12:07 PM CDT) Specimen Narrative Performed At [facility] Nuclear Cardiology and Cardiac CT [address] [place] [address] Myocardial Perfusion Imaging Report Stress ECG tracings are available in MUSE, EPIC and [employer] All ECG interpretations are included in this report Pat.Name:ROHINI BERRY Pat.ID:[id number] St.Date: 12/27/2018 Refer.MD:ROMA ISAACS MD Exam Time: 11:50:00 AM Study Type:Myocardial Perfusion Imaging Height:69inBSA: 1.98 m2 DOBAge:1975,43YSex: FEMALE BP:122/71HR: 73 bpm Nuclear Tech:NIC Novak/NIC Gaspar, ARRT (CT) Pat. Stat.:Inpatient Room:[address] Nuclear Event ID:[id number] Order ID:[id number] Reason for Study:Chest pain, unspecified* History / Clinical:Hyperlipidemia, Shortness of breath, Stroke, SLE Procedures:High Dose Stress Only Clinical Symptoms:Regadenoson Surgery: Serum K+ Date,3.8/12/26/19/, Troponin I Date,1)1) neg/12/23/2018/ 2)/ 3)/ Medications:Aspirin, Lipitor, Xarelto SUMMARY: SCINTIGRAPHIC RESULTS Perfusion Defect Size (% LV) 0 % Total 0 % Ischemia 0 % Scar Left Ventricular Perfusion Results There is normal tracer distribution throughout the myocardium during stress. Gated SPECT Results The post-stress left ventricular ejection fraction is 88 % with normal regional wall motion and left ventricular thickening.Left ventricular end-diastolic volume is 72 ml; end-systolic volume is9 ml. The left ventricle is of normal size at stress.The right ventricle is of normal size with normal wall motion. Conclusion Normal regadenoson Tc-99m tetrofosmin myocardial perfusion study. The left ventricular ejection fraction is normal. Comments Patients with a normal stress myocardial perfusion study have a low (< 1%) annual risk of cardiac or nonfatal myocardial infarction. Study Quality/Artifacts The study quality is good. Comparison to Previous Study None available. STRESS: Baseline Vital Signs:Intervention: Regadenoson 0.4mg/5ml IV over 10 seconds followed by radiotracer injection and 5ml saline flush HR:73 BP:122/71 Stress Test Results: Target HR: 151 Symptoms and Complications: Arrhythmias: None Terminated: As per Regadenoson protocol Symptoms:Dyspnea, Headache Conclusions: Normal heart rate response to pharmacological stress, Normal blood pressure response to pharmacological stress Stress ECG Interp: No ischemic ST segment change occurred with stress. Signed 12/27/2018 02:05 PM Va Skinner MD Procedure Note Interface, Radiology Results In - 12/27/2018 2:06 PM CDT Nuclear Cardiology and Cardiac CT [address] [place] [address] Myocardial Perfusion Imaging Report Stress ECG tracings are available in [email or web address], [employer] and [email or web address] All ECG interpretations are included in this report Pat.Name: ROHINI BERRY.ID: [id number] St.Date: 12/27/2018 Refer.MD: ROMA ISAACS MD Exam Time: 11:50:00 AM Study Type:Myocardial Perfusion Imaging Height: 69in BSA: 1.98 m2 Age: 7 1975,43Y Sex: FEMALE BP: 122/71 HR: 73 bpm Nuclear Tech:NIC Novak/NIC Gaspar, ARRT (CT) Pat. Stat.:Inpatient Room: [address] Nuclear Event ID:[id number] Order ID: [id number] Reason for Study:Chest pain, unspecified* History / Clinical:Hyperlipidemia, Shortness of breath, Stroke, SLE Procedures:High Dose Stress Only Clinical Symptoms:Regadenoson Surgery: Serum K+ Date, 3.8/12/26/18/, Troponin I Date, 1)1) neg/12/23/2018/ 2)/ 3)/ Medications:Aspirin, Lipitor, Xarelto SUMMARY: SCINTIGRAPHIC RESULTS Perfusion Defect Size (% LV) 0 % Total 0 % Ischemia 0 % Scar Left Ventricular Perfusion Results There is normal tracer distribution throughout the myocardium during stress. Gated SPECT Results The post-stress left ventricular ejection fraction is 88 % with normal regional wall motion and left ventricular thickening. Left ventricular end-diastolic volume is 72 ml; end-systolic volume is 9 ml. The left ventricle is of normal size at stress. The right ventricle is of normal size with normal wall motion. Conclusion Normal regadenoson Tc-99m tetrofosmin myocardial perfusion study. The left ventricular ejection fraction is normal. Comments Patients with a normal stress myocardial perfusion study have a low (< 1%) annual risk of cardiac or nonfatal myocardial infarction. Study Quality/Artifacts The study quality is good. Comparison to Previous Study None available. STRESS: Baseline Vital Signs: Intervention: Regadenoson 0.4mg/5ml IV over 10 seconds followed by radiotracer injection and 5ml saline flush HR: 73 BP: 122/71 Stress Test Results: Target HR: 151 Symptoms and Complications: Arrhythmias: None Terminated: As per Regadenoson protocol Symptoms: Dyspnea, Headache Conclusions: Normal heart rate response to pharmacological stress, Normal blood pressure response to pharmacological stress Stress ECG Interp: No ischemic ST segment change occurred with stress. Signed 12/27/2018 02:05 PM Va Skinner MD Performing Organization Address [facility]/Zipcode Phone Number [facility] [address] [place] [address] * D-dimer (12/26/2018 5:00 PM CDT) [facility] D-dimer 0.59 (H) 0.00 - 0.40 ug/mL [place] Comment: FEU VOODOO Units are ug/ml [facility] HOSPITAL Equivalent Unit. When combined with low clinical probability, D-dimer results of less than 0.5 ug/ml FEU have a good negativepredictive value in excluding PE or DVT. For D-dimer results greater than 0.5ug/ml FEU further testing is indicated if PE or DVT is suspectedclinically. Elevated D-dimer results have been reported in DVT, PE, and DIC cases and may indicate the presence of a clot. D-dimer results may be elevated due to old age, , inflammatory diseases, trauma, post-operative states, sepsis, and malignancies. Specimen Blood Performing Organization Address [facility] Phone Number [facility] DEPARTMENT OF [address] [place] [address] PATHOLOGY AND GENOMIC MEDICINE [place] VOODOO [address] [place] [address] * Estimated GFR (12/26/2018 5:58 AM CDT) Only the most recent of 4 results within the time period is included. [facility] Estimated GFR >=90 mL/min/1.73 m2 [place] Comment: VOODOO [facility] rpretation G1 >=90 Normal or high G2 60-89Mildly decreased U6a20-45 Mildly to moderately decreased S6m50-87 Moderately to severely decreased G4 15-29Severely decreased G5 <15Kidney failure The eGFR was calculated using the Chronic Kidney Disease Epidemiology Collaboration (CKD-EPI) equation. Interpretation is based on recommendations of the National Kidney Foundation-Kidney Disease Outcomes Quality Initiative (NKF-KDOQI) published in 2014. Specimen Plasma specimen Performing Organization Address City/State/Zipcode Phone Number [facility] DEPARTMENT OF [address] [place] [address] PATHOLOGY [place] [address] HOSPITAL * CBC with platelet and differential (12/26/2018 5:58 AM CDT) Only the most recent of 6 results within the time period is included. WBC 2.62 (L) 4.50 - 11.00 k/uL [facility] RBC 4.63 4.20 - 5.50 m/uL [facility] HGB 12.6 12.0 - 16.0 g/dL [facility] HCT 40.8 37.0 - 47.0 % [facility] MCV 88.1 82.0 - 100.0 fL [facility] MCH 27.2 27.0 - 34.0 pg [facility] MCHC 30.9 (L) 31.0 - 37.0 g/dL [facility] RDW - SD 42.6 37.0 - 55.0 fL [facility] MPV 12.6 8.8 - 13.2 fL [facility] Platelet count 155 150 - 400 k/uL [facility] Nucleated RBC 0.00 /100 WBC [facility] Neutrophils 73.7 (H) 39.0 - 69.0 % [facility] Lymphocytes 16.0 (L) 25.0 - 45.0 % [facility] Monocytes 7.6 0.0 - 10.0 % [facility] Eosinophils 0.8 0.0 - 5.0 % [facility] Basophils 0.8 0.0 - 1.0 % [facility] Immature 1.1 (H)Comment: "Immature 0.0 - 1.0 % [place] granulocytes granulocytes" (promyelocytes, VOODOO myelocytes, metamyelocytes) HOSPITAL Specimen Blood Performing Organization Address City/[facility]/Zipcode Phone Number [facility] DEPARTMENT OF [address] [place] [address] PATHOLOGY AND GENOMIC MEDICINE [address] [address] HOSPITAL * Magnesium level (12/26/2018 5:58 AM CDT) Only the most recent of 2 results within the time period is included. Magnesium 1.8 1.6 - 2.6 mg/dL [facility] Specimen Plasma specimen Performing Organization Address [facility] Phone Number [facility] DEPARTMENT OF [address] [place] [address] PATHOLOGY AND GENOMIC MEDICINE [address] * Basic metabolic panel (12/26/2018 5:58 AM CDT) Only the most recent of 3 results within the time period is included. Sodium 138 135 - 148 mEq/L [facility] Potassium 3.8 3.5 - 5.0 mEq/L [facility] Chloride 104 98 - 112 mEq/L [facility] CO2 24 24 - 31 mEq/L [facility] Anion gap 10@ANIO 7 - 15 mEq/L [facility] BUN 5 (L) 6 - 20 mg/dL [facility] Creatinine 0.43 (L) 0.50 - 0.90 mg/dL [facility] Glucose 98 65 - 99 mg/dL [facility] Calcium 8.7 8.3 - 10.2 mg/dL [facility] Specimen Plasma specimen Performing Organization Address [facility]code Phone Number [facility] [place] [address] PATHOLOGY AND GENOMIC MEDICINE [address] * Echocardiogram complete w contrast and 3D if needed (12/24/2018 5:15 PM CDT) Specimen Narrative Performed At [facility] Echocardiography Report [address] [place] [address] Pat.Name:ROHINI BERRY Pat.ID:[id number] .Date: 12/24/2018 Refer.MD:ROMA ISAACS MD Exam Time: 4:38:00 PMStudy Type:Routine Echo Height:69inWeight:181lb BSA: 1.98 m2 DOBAge:1975,43Y Sex: FEMALEBP:117/81 HR:79 bpmSonogrphr: Kwabena CORBETT Pat. Stat.:Inpatient Room:F 1222 A Study Status:Final Echo Event ID:[id number] Order ID:[id number] Reason for Study:Lupus patient - progressively worsening dyspnea/chest pain, evaluation for effusion/pericarditis, PA pressures History / Clinical:Stroke Procedures:2D Echo, Colorflow Doppler Race:C SUMMARY: LV EF is normal.Estimated EF is 65-69% RV systolic function is normal. Normal diastolic function. No significant valvular abnormalities. FINDINGS: LV: LV size is normal. LV EF is normal. Overall wall motion is normal.Estimated EF is 65-69% RV: RV size is normal. RV systolic function is normal. LA: LA size is normal. RA: RA size is normal. AO: Aortic root diameter is normal. EDITH: No pericardial effusion. AV: No structural AV abnormalities noted. A trace of aortic regurgitation. MV: No structural MV abnormalities noted. A trace of mitral regurgitation. PV: No structural PV abnormalities noted. TV: No structural TV abnormalities noted. A trace of tricuspid regurgitation Lucero: Normal diastolic function. Other:Insufficient TR jet to estimate PA systolic pressure. MEASUREMENTS: 2D Parasternal Long [place] LVOT 2 cmLA Ds3.8 cm LVIDd3.4 cmIndex1.7 cm/m Ao An2.2 cm LVIDs2 cmAo Rtd 3.7 cm Index1.9 cm/m LV%fs 40.6 % LV Kabf821.3 g(87-129) IVSd 1 cmLVM Index 51.6 g/m2 LVPWd1 cmRWT0.6 LA Sng Plane LA Area 21.2 cm2(8.8-23.4) LA Vol59.9 ml Index30.2 ml/m LA LngAx 6.8 cm RA Sng Plane RA Area 18.1 cm2(8.3-19.5) RA Vol45.9 ml Index23.2 ml/m RA LngAx 6.1 cm DOPPLER LVOT Stroke Vol LVOT 2 cmLVOT CO5.5 l/min LVOT TVI21.9 cmLVOT CI2.8 l/m/m2 LVOT Tm287 xhouHY71 bpm LVOT SV 68.7 ml Signed 12/25/2018 01:24 PM Shira Hall MD Procedure Note Interface, Radiology Results In - 12/25/2018 1:24 PM CDT Echocardiography Report [address] [place] [address] Pat.Name: ROHINI BERRY [facility].ID: [id number] .Date: 12/24/2018 Refer.MD: ROMA ISAACS MD Exam Time: 4:38:00 PM Study Type:Routine Echo Height: 69in Weight: 181lb BSA: 1.98 m2 Age: 7 1975,43Y Sex: FEMALE BP: 117/81 HR: 79 bpm Sonogrphr: Kwabena CORBETT Pat. Stat.:Inpatient Room: [facility] A Study Status:Final Echo Event ID:[id number] Order ID: [id number] Reason for Study:Lupus patient - progressively worsening dyspnea/chest pain, evaluation for effusion/pericarditis, PA pressures History / Clinical:Stroke Procedures:2D Echo, Colorflow Doppler Race: C SUMMARY: LV EF is normal.Estimated EF is 65-69% RV systolic function is normal. Normal diastolic function. No significant valvular abnormalities. FINDINGS: LV: LV size is normal. LV EF is normal. Overall wall motion is normal. Estimated EF is 65-69% RV: RV size is normal. RV systolic function is normal. LA: LA size is normal. RA: RA size is normal. AO: Aortic root diameter is normal. EDITH: No pericardial effusion. AV: No structural AV abnormalities noted. A trace of aortic regurgitation. MV: No structural MV abnormalities noted. A trace of mitral regurgitation. PV: No structural PV abnormalities noted. TV: No structural TV abnormalities noted. A trace of tricuspid regurgitation Lucero: Normal diastolic function. Other: Insufficient TR jet to estimate PA systolic pressure. MEASUREMENTS: 2D Parasternal Long [place] LVOT 2 cm LA Ds 3.8 cm LVIDd 3.4 cm Index 1.7 cm/m Ao An 2.2 cm LVIDs 2 cm Ao Rtd 3.7 cm Index 1.9 cm/m LV%fs 40.6 % LV Mass 102.3 g (87-129) IVSd 1 cm LVM Index 51.6 g/m2 LVPWd 1 cm RWT 0.6 LA Sng Plane LA Area 21.2 cm2 (8.8-23.4) LA Vol 59.9 ml Index 30.2 ml/m LA LngAx 6.8 cm RA Sng Plane RA Area 18.1 cm2 (8.3-19.5) RA Vol 45.9 ml Index 23.2 ml/m RA LngAx 6.1 cm DOPPLER LVOT Stroke Vol LVOT 2 cm LVOT CO 5.5 l/min LVOT TVI 21.9 cm LVOT CI 2.8 l/m/m2 LVOT Tm 287 msec HR 80 bpm LVOT SV 68.7 ml Signed 12/25/2018 01:24 PM Shira Hall MD Performing Organization Address City/State/Zipcode Phone Number [facility] [address] [place] [phone] * Us duplex venous lower extremity (12/24/2018 12:13 PM CDT) Specimen Narrative Performed At [facility] Lower Extremity Venous Report [address] [address] Pat.Name:ROHINI BERRY Pat.ID:[id number] .Date: 12/24/2018 Refer.MD:ROMA ISAACS MD Exam Time: 11:48:00 AM Study Type:LE Venous Height:69inDOBAge:[birth year],43Y Sex: FEMALESonogrphr: DAY Feldman Pat. Stat.:Inpatient Room:[facility] TapeVol: , CPT - 4: 16124 Echo Event ID:[id number] Order ID:[id number] Reason for Study:Bilateral leg edema. PMH of Fahr's disease, lupus, chronic anticoagulation and prior stroke who presented to the ED for evaluation and management of hemoptysis. Procedures:Colorflow, Grayscale/2D, Pulsed wave Doppler Race:C SUMMARY: * Normal Reflux Criteria:< 0.5 seconds * Abnormal Reflux Criteria:> or equal to 0.5 seconds DUPLEX SCAN OBSERVATIONS Deep VeinsSuperficial Veins RightLeft RightLeft EIV GSV (prox) NormalNormal CFV Normal Normal (above knee) Femoral Normal Normal GSV (dist) Normal Normal Profunda Normal Normal (below knee) Popliteal Normal Incompetent PT (prox) Normal NormalSSV Normal Normal PT (dist) Normal Normal Peroneal Normal Normal RIGHT:There is normal compressibility with no evidence of echogenic material noted within the lumen of the visualized veins.Colorflow and Doppler signals are normal. LEFT: There is normal compressibility with no evidence of echogenic material noted within the lumen of the visualized veins. Colorflow and Doppler signalsdemonstrate venous reflux in the popliteal vein. PRELIMINARY FINDINGS 1.No evidence of venous thrombosis in the lower extremities. 2.Incompetence of the left popliteal vein. PHYSICIAN INTERPRETATION Venous examination of the both lower extremities demonstrated no evidence of venous thrombosis in the visualized veins. Venous reflux seen in the left popliteal vein. Signed 12/24/2018 05:04 PM Octaviano Ellsworth MD, RPVI Procedure Note Interface, Radiology Results In - 12/24/2018 5:04 PM CDT [facility] Lower Extremity Venous Report [address] [place] [address] Pat.Name: ROHINI BERRY Pat.ID: [id number] .Date: 12/24/2018 Refer.MD: ROMA ISAACS MD Exam Time: 11:48:00 AM Study Type:LE Venous Height: 69in Age: 7 1975,43Y Sex: FEMALE Sonogrphr: DAY Feldman Pat. Stat.:Inpatient Room: [address] Vol: , [facility] - 4: [address] Echo Event ID:[id number] Order ID: [id number] Reason for Study:Bilateral leg edema. PMH of Fahr's disease, lupus, chronic anticoagulation and prior stroke who presented to the ED for evaluation and management of hemoptysis. Procedures:Colorflow, Grayscale/2D, Pulsed wave Doppler Race: C SUMMARY: * Normal Reflux Criteria: < 0.5 seconds * Abnormal Reflux Criteria: > or equal to 0.5 seconds DUPLEX SCAN OBSERVATIONS Deep Veins Superficial Veins Right Left Right Left EIV GSV (prox) Normal Normal CFV Normal Normal (above knee) Femoral Normal Normal GSV (dist) Normal Normal Profunda Normal Normal (below knee) Popliteal Normal Incompetent PT (prox) Normal Normal SSV Normal Normal PT (dist) Normal Normal Peroneal Normal Normal RIGHT: There is normal compressibility with no evidence of echogenic material noted within the lumen of the visualized veins. Colorflow and Doppler signals are normal. LEFT: There is normal compressibility with no evidence of echogenic material noted within the lumen of the visualized veins. Colorflow and Doppler signals demonstrate venous reflux in the popliteal vein. PRELIMINARY FINDINGS 1. No evidence of venous thrombosis in the lower extremities. 2. Incompetence of the left popliteal vein. PHYSICIAN INTERPRETATION Venous examination of the both lower extremities demonstrated no evidence of venous thrombosis in the visualized veins. Venous reflux seen in the left popliteal vein. Signed 12/24/2018 05:04 PM Octaviano Ellsworth MD, RPVI Performing Organization Address [facility] Phone Number [facility] [address] [place] [address] * [place] Modified Barium Swallow (12/24/2018 11:07 AM CDT) Specimen Narrative Performed At EXAMINATION:FL MODIFIED BARIUM SWALLOW [facility] CLINICAL HISTORY:concern for possible recurrent aspiration - bulbar dysfunction 2 2 Fahr's disease . Dysphagia unspecified. Lupus. COMPARISON:None. Fluoroscopy time: 1.4 minutes .One image acquired. IMPRESSION: The patient swallowed all administered substances without laryngeal penetration or aspiration.. Please refer to Speech Pathology report for further details. [facility]-[id number] Procedure Note Interface, Radiology Results Incoming - 12/24/2018 11:25 AM CDT EXAMINATION: [place] MODIFIED BARIUM SWALLOW CLINICAL HISTORY: concern for possible recurrent aspiration - bulbar dysfunction 2 2 Fahr's disease . Dysphagia unspecified. Lupus. COMPARISON: None. Fluoroscopy time: 1.4 minutes . One image acquired. IMPRESSION: The patient swallowed all administered substances without laryngeal penetration or aspiration.. Please refer to Speech Pathology report for further details. [facility]-[id number] Performing Organization Address [facility]code Phone Number [facility] [address] [place] [address] * IgG subclasses (12/23/2018 9:30 PM CDT) Immunoglobulin 859 240 - 1,118 mg/dL [facility] G subclass 1 Comment: REFERENCE INTERVAL: Immunoglobulin G Subclass 1 Access complete set of age- and/or gender-specific reference intervals for this test in the [facility] ([employer] Immunoglobulin 229 124 - 549 mg/dL [facility] G subclass 2 Comment: REFERENCE INTERVAL: Immunoglobulin G Subclass 2 Access complete set of age- and/or gender-specific reference intervals for this test in the [facility] ([employer] ([employer] Immunoglobulin 50 21 - 134 mg/dL [facility] G subclass 3 Comment: REFERENCE INTERVAL: Immunoglobulin G Subclass 3 Access complete set of age- and/or gender-specific reference intervals for this test in the [facility] ([employer] ([employer] Immunoglobulin 20 1 - 123 mg/dL [facility] subclass 4 Comment: The total IgG (mg/dL) can be derived by the sum of the subclasses IgG1, IgG2, IgG3 and IgG4 values. However, a confirmatory and more precise total IgG is available by the nephelometric method of total IgG (Test # [id number]). REFERENCE INTERVAL: Immunoglobulin G Subclass 4 Access complete set of age- and/or gender-specific reference intervals for this test in the [facility] ([employer] Performed by [facility], [address] [place] [id number] [email or web address] ([employer]), Roland Rubio MD - Lab. Director Specimen Serum Performing Organization Address [facility]/Zipcode Phone Number [facility] [address] [place] [address] [facility] [address] [place] [address] * Immunoglobulin G (12/23/2018 6:33 PM CDT) Only the most recent of 2 results within the time period is included. IgG 1,369 700 - 1,600 mg/dL [facility] Specimen Plasma specimen Performing Organization Address City/[facility]/Zipcode Phone Number [facility] DEPARTMENT OF [address] [place] [address] PATHOLOGY AND GENOMIC MEDICINE [address] * XR Chest 1 Vw (12/23/2018 4:05 PM CDT) Specimen Narrative Performed At EXAMINATION:XR CHEST 1 VW [facility] CLINICAL HISTORY:Shortness of breath COMPARISON:None IMPRESSION: The heart is normal in appearance. Increased reticular densities are present in both lung bases. The lungs are hypoventilated and otherwise clear. [facility]-[id number] Procedure Note Hm Interface, Radiology Results Incoming - 12/23/2018 4:19 PM CDT EXAMINATION: XR CHEST 1 VW CLINICAL HISTORY: Shortness of breath COMPARISON: None IMPRESSION: The heart is normal in appearance. Increased reticular densities are present in both lung bases. The lungs are hypoventilated and otherwise clear. [facility]-[id number] Performing Organization Address City/[facility]/Zipcode Phone Number [facility] [address] [place] [address] * Immunoglobulin E (12/23/2018 3:47 PM CDT) [facility] IgE 1.9 0.0 - 100.0 IU/mL [facility] Specimen Plasma specimen Performing Organization Address [facility] Phone Number [facility] DEPARTMENT OF [address] [place] [address] PATHOLOGY [address] * Lactic acid level, SEPSIS - Now and repeat 2x every 3 hours (12/23/2018 6:30 AM CDT) Only the most recent of 2 results within the time period is included. [facility] Lactic acid 1.2 0.5 - 2.2 mmol/L [facility] Specimen Blood Performing Organization Address [facility] Phone Number [facility] [place] [address] PATHOLOGY [address] * Peripheral smear (12/23/2018 6:30 AM CDT) [facility] Peripheral Done [place] smear Comment: VOODOO Peripheral smear is located in HOSPITAL Hematology Laboratory, second floor of [facility]. Specimen Blood Performing Organization Address [facility]/Zipcode Phone Number [facility] DEPARTMENT OF [address] [place] [address] PATHOLOGY AND [facility] [address] * Streptococcus pneumoniae urinary antigen (12/23/2018 6:30 AM CDT) [facility] Strep pneumo Negative for [facility] urinary Ag pneumoniae antigen. VO[facility]OO Comment: HOSPITAL Specimen Information Specimen Source: Urine Specimen Site: Random void Specimen Urine - Random void Performing Organization Address City/[facility] Phone Number [facility] [place] [address] PATHOLOGY AND GENOMIC MEDICINE [address] * Legionella urinary antigen (12/23/2018 6:30 AM CDT) Pathologist [facility] Legionella Negative for Legionella [place] urinary antigen serogroup 1 antigen. VO[facility]OO Comment: HOSPITAL Specimen Information Specimen Source: Urine Specimen Site: Random void Specimen Urine - Random void Performing Organization Address City/[facility] Phone Number [facility] [place] [address] PATHOLOGY AND GENOMIC MEDICINE [address] * Blood culture, aerobic & anaerobic (12/23/2018 12:50 AM CDT) Only the most recent of 2 results within the time period is included. Pathologist [facility] Blood culture No growth after 5 days of [place] isolate incubation. [facility] Comment: HOSPITAL Specimen Information Specimen Source: Blood Specimen Site: Antecubital, left Specimen Blood - Antecubital, left Performing Organization Address [facility] Phone Number [facility] [place] [address] PATHOLOGY AND GENOMIC MEDICINE [address] * Urinalysis screen and microscopy, with reflex to culture (12/23/2018 12:10 AM CDT) Specimen site Clean catch [facility] Color, UA Straw [facility] Appearance, UA Clear [facility] Specific 1.012 1.001 - 1.035 [place] gravity, [facility] pH, UA 6.0 5.0 - 8.5 [facility] Protein, UA Negative Negative [facility] Glucose, UA Negative Negative [facility] Ketones, UA Negative Negative [facility] Bilirubin, UA Negative Negative [facility] Blood, UA Negative Negative [facility] Nitrite, UA Negative Negative [facility] Urobilinogen, <2.0 <2.0 [facility] Leukocyte Negative Negative [place] esterase, [facility] Epithelial 7 /HPF [place] cells, [facility] WBC, UA <1 0 - 4 /HPF [facility] RBC, UA 2 0 - 5 /HPF [facility] Bacteria, UA None seen None seen [facility] Yeast, UA None seen [facility] Yeast with None seen [place] pseudohyphae, [facility] Specimen Urine Performing Organization Address [facility] Phone Number [facility] [place] [address] PATH[address] * Influenza antigen test, reflex negative to RPP (12/23/2018 12:10 AM CDT) [facility] Influenza Negative for Influenza A/B [place] antigen antigen. [facility] Comment: HOSPITAL Specimen Information Specimen Source: Nares Specimen Site: Right Specimen Nares - Right Performing Organization Address [facility] Phone Number [facility] [place] [address] * Troponin (12/23/2018 12:10 AM CDT) [facility] Troponin <0.30 0.000 - 0.300 ng/mL [place] Comment: [facility] changed methodology effective: 01/12/2019 at 10:00 am The new method has a 99th percentile cutoff of 0.040 ng/mL Specimen Plasma specimen Performing Organization Address [facility] Phone Number [facility] [place] [address] PATHOLOGY AND [address] * hCG qualitative, urine screen (12/23/2018 12:10 AM CDT) [facility] hCG NegativeComment: Sensitivity [place] qualitative, of HCG test: 25 mIU/mL [facility] urine [facility] Specimen Urine Performing Organization Address [facility] Phone Number [facility] [place] [address] PATHOLOGY AND [facility] [address] * Partial thromboplastin time, activated (12/23/2018 12:10 AM CDT) [facility] PTT 34.2 23.0 - 36.0 sec [place] Comment: [facility] PTT therapeutic range for HOSPITAL unfractionated heparin is 61.0-112.0 seconds which corresponds to Anti-Xa 0.3-0.7 U/ml. Specimen Blood Performing Organization Address City/[facility]/Zipcode Phone Number [facility] DEPARTMENT OF [address] [place] [address] PATHOLOGY AND GENOMIC MEDICINE [address] * Prothrombin time with INR (12/23/2018 12:10 AM CDT) Pathologist [facility] Prothrombin 13.7 11.5 - 14.5 sec [facility] INR 1.1 [place] Comment: [facility] Normalized HOSPITAL Ratio (INR) is a therapeutic monitoring tool for patients who are stable on oral anticoagulant therapy. An INR of 2.0-3.0 is suggested for deep vein thrombosis/pulmonary embolism. Specimen Blood Performing Organization Address City/State/Zipcode Phone Number [facility] [place] [address] PATHOLOGY AND [facility] [address] * Urine culture (12/23/2018 12:10 AM CDT) [facility] Urine culture SEE COMMENTComment: [place] Bacteriuria screen negative. [facility] Specimen Performing Organization Address City/[facility] Phone Number [facility] DEPARTMENT OF [address] [place] [address] PATHOLOGY AND [facility] [address] * Comprehensive metabolic panel (12/23/2018 12:10 AM CDT) Only the most recent of 2 results within the time period is included. Pathologist [facility] Sodium 140 135 - 148 mEq/L [facility] Potassium 3.7 3.5 - 5.0 mEq/L [facility] Chloride 104 98 - 112 mEq/L [facility] CO2 24 24 - 31 mEq/L [facility] Anion gap 12@ANIO 7 - 15 mEq/L [facility] BUN 11 6 - 20 mg/dL [facility] Creatinine 0.48 (L) 0.50 - 0.90 mg/dL [facility] Glucose 86 65 - 99 mg/dL [facility] Calcium 9.1 8.3 - 10.2 mg/dL [facility] Protein 7.4 6.3 - 8.3 g/dL [place] Comment: [facility] 4.6-7.0 g/dL 1 week 4.4-7.6 g/dL 7 months-1year 5.1-7.3 g/dL 1-2 years5.6-7 .5 g/dL >3 years6.0-8 .0 g/dL 18-150 6.3-8.3 g/dL Albumin 3.3 (L) 3.5 - 5.0 g/dL [facility] A/G ratio 0.8 0.7 - 3.8 [facility] Alkaline 127 (H) 35 - 104 U/L [place] phosphatase [facility] AST 61 (H) 10 - 35 U/L [facility] ALT 47 5 - 50 U/L [facility] Total bilirubin 0.3 0.0 - 1.2 mg/dL [facility] Specimen Plasma specimen Performing Organization Address City/[facility] Phone Number [facility] DEPARTMENT OF [address] [place] [address] PATHOLOGY AND GENOMIC MEDICINE [address] * ECG ED Preliminary Interpretation - Not an Order (12/22/2018 11:29 PM CDT) Narrative Performed At Bal King DO 12/23/20184:25 AM ECG ED Preliminary Interpretation - Not an Order Performed by: Bal King DO Authorized by: Bal King DO ECG reviewed by ED Physician in the absence of a lever operator: yes Interpretation: Interpretation: normal Rate: ECG rate:81 ECG rate assessment: normal Rhythm: Rhythm: sinus rhythm Ectopy: Ectopy: none QRS: QRS axis:Normal QRS intervals:Normal Conduction: Conduction: normal ST segments: ST segments:Normal T waves: T waves: normal * ECG 12 lead (12/22/2018 11:21 PM CDT) Ventricular 81 [facility] rate Atrial rate 81 [facility] KS interval 178 [facility] QRSD interval 78 [facility] QT interval 380 [facility] QTC interval 441 [facility] P axis 1 29 [facility] QRS axis 1 33 [facility] T wave axis 19 [facility] EKG impression Normal sinus rhythm-Normal [facility] MUSE ECG-In automated comparison with ECG of 07-DEC-2017 13:14,-No significant change was found- Specimen Narrative Performed At Performing Organization Address City/State/[facility] Phone Number [facility] MUSE [address] [place] [address] * CT Chest Wo Contrast (12/18/2018 2:18 PM CDT) Specimen Narrative Performed At EXAMINATION: CT CHEST WO CONTRAST RADIANT CLINICAL HISTORY: R06.02 Shortness of breath, Shortness of breath TECHNIQUE:Axial images of the chest were obtained without intravenous contrast. The lack of intravenous contrast reduces the sensitivity of the exam and evaluating vasculature. CT imaging was performed with iterative reconstruction technique and/or automated exposure control to reduce radiation dose. COMPARISON:03/24/2004. FINDINGS: Lungs and airways: Peribronchovascular consolidation in the basal right lower lobe and to a lesser extent right middle lobe with moderate bronchial wall thickening and mild atelectasis, probably infection. Relatively mild diffuse bronchial wall thickening in the remaining lungs, suggestive of chronic bronchitis. Dependent hypoventilatory changes predominantly in the lung bases. Pleura: Trace right pleural effusion. Mediastinum and lymph nodes: No lymphadenopathy. Cardiovascular: Heart size is top normal. Pericardial thickening is noted. Main pulmonary artery is prominent with diameter 3.3 cm. No thoracic aortic aneurysm. Upper abdomen: Incompletely visualized spleen is probably enlarged; splenomegaly was present on 2003 CT exam. Musculoskeletal: No suspicious osseous lesion. IMPRESSION: Right lung base findings are most consistent with bronchopulmonary pneumonia. Trace right pleural effusion is present. Prominent main pulmonary artery. Pericardial thickening. I personally reviewed the images and the resident's findings and agree with the final report. [facility]-[id number] Procedure Note Interface, Radiology Results Incoming - 12/18/2018 4:12 PM CDT EXAMINATION: CT CHEST WO CONTRAST CLINICAL HISTORY: R06.02 Shortness of breath, Shortness of breath TECHNIQUE: Axial images of the chest were obtained without intravenous contrast. The lack of intravenous contrast reduces the sensitivity of the exam and evaluating vasculature. CT imaging was performed with iterative reconstruction technique and/or automated exposure control to reduce radiation dose. COMPARISON: 03/24/2004. FINDINGS: Lungs and airways: Peribronchovascular consolidation in the basal right lower lobe and to a lesser extent right middle lobe with moderate bronchial wall thickening and mild atelectasis, probably infection. Relatively mild diffuse bronchial wall thickening in the remaining lungs, suggestive of chronic bronchitis. Dependent hypoventilatory changes predominantly in the lung bases. Pleura: Trace right pleural effusion. Mediastinum and lymph nodes: No lymphadenopathy. Cardiovascular: Heart size is top normal. Pericardial thickening is noted. Main pulmonary artery is prominent with diameter 3.3 cm. No thoracic aortic aneurysm. Upper abdomen: Incompletely visualized spleen is probably enlarged; splenomegaly was present on 2004 CT exam. Musculoskeletal: No suspicious osseous lesion. IMPRESSION: Right lung base findings are most consistent with bronchopulmonary pneumonia. Trace right pleural effusion is present. Prominent main pulmonary artery. Pericardial thickening. I personally reviewed the images and the resident's findings and agree with the final report. [facility]-[id number] Performing Organization Address City/State/Zipcode Phone Number [facility] [address] [place] [address] * Spirometry, diffusion, lung volumes (12/18/2018 11:39 AM CDT) FEV1 Pre 0.92 2.79 - 4.15 L [facility] FEV1/FVC % Pre 76.54 72.09 - 91.68 % [facility] FVC Pre 1.20 3.50 - 5.11 L [facility] PEF Pre 1.96 5.75 - 9.73 L/s [facility] FEF 25-75% Pre 0.82 1.92 - 4.80 L/s [facility] DLCO Pre 13.29 19.15 - 32.15 [facility] ml/(min*mmHg) DL/VA Pre 7.04 3.18 - 5.81 [facility] ml/(min*mmHg*L) VA SB Pre 1.89 4.78 - 6.98 L [facility] DLCOc Pre 13.29 19.15 - 32.15 [facility] ml/(min*mmHg) KCOc SB Pre 7.04 3.18 - 5.81 [facility] ml/(min*mmHg*L) Hb Pre 13.40 g(Hb)/dL [facility] R0.5IN Pre 2.18 3.06 - 3.06 [facility] cmH2O*s/L FRCpl Pre 1.93 2.15 - 3.79 L [facility] RV Pre 1.38 1.27 - 2.42 L [facility] TLC Pre 2.65 4.79 - 6.76 L [facility] RV % TLC Pre 52.04 23.65 - 42.83 % [facility] VC Pre 1.27 3.50 - 5.11 L [facility] ERV Pre 0.55 1.12 - 1.12 L [facility] IC Pre 0.72 2.76 - 2.76 L [facility] sR0.5IN Pre 4.69 cmH2O*s [facility] Raw Pre 2.72 3.06 - 3.06 [facility] cmH2O*s/L sGaw Predicted 0.17 0.10 - 0.10 [facility] 1/(cmH2O*s) FEV1 Predicted 3.47 [facility] FEV1 LLN 2.79 [facility] FEV1 % Pre of 26.4 % [facility] Predicted FVC Predicted 4.31 [facility] FVC LLN 3.50 [facility] FVC % Pre of 27.8 % [facility] Predicted FEV1/FVC % 82 [facility] Predicted FEV1/FVC % LLN 72 [facility] FEV1/FVC % Pre 93.5 % [facility] of Predicted FEF 25-75% 3.36 [facility] Predicted FEF 25-75% LLN 1.92 [facility] FEF 25-75% % 24.5 % [facility] Pre of Predicted PEF Predicted 7.74 [facility] PEF LLN 5.75 [facility] PEF % Pre of 25.4 % [facility] Predicted VC Predicted 4.31 [facility] VC LLN 3.50 [facility] VC % Pre of 29.5 % [facility] Predicted ERV Predicted 1.12 [facility] ERV LLN 1.12 [facility] ERV % Pre of 49.2 % [facility] Predicted FRCpl % 2.97 [facility] Predicted FRCpl % LLN 2.15 [facility] FRCpl % Pre of 65.1 % [facility] Predicted IC Predicted 2.76 [facility] IC LLN 2.76 [facility] IC % Pre of 26.0 % [facility] Predicted RV Predicted 1.84 [facility] RV LLN 1.27 [facility] RV % Pre of 74.7 % [facility] Predicted RV % TLC 33 [facility] Predicted RV % TLC LLN 24 [facility] RV % TLC % Pre 156.6 % [facility] of Predicted TLC Predicted 5.78 [facility] TLC LLN 4.79 [facility] TLC % Pre of 45.8 % [facility] Predicted Raw Predicted 3.06 [facility] Raw LLN 3.06 [facility] Raw % Pre of 88.8 % [facility] Predicted R0.5IN 3.06 [facility] Predicted R0.5IN LLN 3.06 [facility] R0.5IN % Pre of 71.4 % [facility] Predicted sGaw Predicted 0.10 [facility] sGaw LLN 0.10 [facility] sGaw % Pre of 168.1 % [facility] Predicted DLCO Predicted 25.65 [facility] DLCO LLN 19.15 [facility] DLCO % Pre of 51.8 % [facility] Predicted DLCOc Predicted 25.65 [facility] DLCOc LLN 19.15 [facility] DLCOc % Pre of 51.8 % [facility] Predicted DL/VA Predicted 4.50 [facility] DL/VA LLN 3.18 [facility] DL/VA % Pre of 156.6 % [facility] Predicted KCOc SB 4.50 [facility] Predicted KCOc SB LLN 3.18 [facility] KCOc SB % Pre 156.6 % [facility] of Predicted VA SB Predicted 5.88 [facility] VA SB LLN 4.78 [facility] VA SB % Pre of 32.1 % [facility] Predicted Specimen Narrative Performed At Performing Organization Address City/State/Zipcode Phone Number [facility] [address] [place] [address] * Lipid panel (08/04/2018 9:29 AM ENERGY BROKER) Cholesterol 149 <200 mg/dL [facility] Triglycerides 175 (H) <150 mg/dL [facility] HDL cholesterol 42 >40 mg/dL [facility] LDL cholesterol 89Comment: Result obtained by <100 mg/dL [place] direct LDL measurement [facility] Lipid panel [facility] interpretation Comment: [facility] Total Cholesterol HOSPITAL (mg/dL) <200 Desirable 200-239Borderline -high >=240High Triglycerides (mg/dL) <150 Normal 150-199Borderline -high 200-499High >=500Very high HDL Cholesterol (mg/dL) <40Low (male) <40Low (female) LDL Cholesterol (mg/dL) <100 Optimal 100-129Near or above optimal 130-159Borderline -high 160-189High >=190Very high Risk Catergories that modify LDL goals. Risk Catergories LDL goal (mg/dL) CHD and CHD risk equivalent<100 (10-year risk >20%) Multiple (2+) risk factors <130 (10-year risk=<20%) 0-1 risk factors <160 (<10-year risk) Defining levels of lipids in metabolic syndrome Triglycerides >=150 mg/dL HDL Cholesterol Men <40 mg/dL Women <40 mg/dL Non-HDL cholesterol is a second target for therapy in persons with high triglycerides (>=200 mg/dL) Specimen Plasma specimen Performing Organization Address City/[facility]/Zipcode Phone Number [facility] DEPARTMENT OF [address] [place] [address] PATHOLOGY AND GENOMIC MEDICINE [place] [address] * Outpatient EEG (08/04/2018 8:47 AM ENERGY BROKER) Narrative Performed At EEG [facility]WA[facility]OW[facility] Date of Service: 08/04/18 Awake Recording: The occipital dominant rhythm is 9 Hz. 18-22 Hz activity is present in all regions. Sleep Recording:No sleep was recorded. Hyperventilation: No abnormality elicited. Photic Stimulation: No abnormality elicited. Impression The background activity is within the range of normal variation. No lateralized or epileptiform activity was recorded. ICD-10 Code: R569 * Miscellaneous Lab Result (04/16/2018) Specimen Blood Narrative Performed At * Microscopic Examination (04/15/2018 9:32 AM CDT) WBC, UA 0-5 0 - 5 /hpf [facility] RBC, UA 0-2 0 - 2 /hpf [facility] Epithelial >10 (A) 0 - 10 /hpf [facility] cells (non renal) Mucus, UA Present Not Estab. [facility] Bacteria, UA Few None seen/Few [facility] Specimen Narrative Performed At Performed at:01 - [facility] [address], [id number] [employer] Operator: Jerry Rosa MD, Phone:[phone] Performing Organization Address City/[facility]/Zipcode Phone Number [facility] * Urinalysis, automated with microscopy (04/15/2018 9:32 AM CDT) Specific 1.025 1.005 - 1.030 [facility] gravity, urine pH, urine 5.0 5.0 - 7.5 [facility] Color, UA Yellow Yellow [facility] Appearance Clear Clear [facility] WBC esterase, Negative Negative [facility] urine Protein, UA Negative Negative/Trace [facility] Glucose, urine Negative Negative [facility] Ketones, UA Trace (A) Negative [facility] Occult blood, Negative Negative [facility] urine Bilirubin, UA Negative Negative [facility] Urobilinogen, 0.2 0.2 - 1.0 mg/dL [facility] UA Nitrite, UA Negative Negative [facility] Microscopic CommentComment: Microscopic [facility] examination follows if indicated. Microscopic See below:Comment: Microscopic [facility] examination was indicated and was performed. 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 For more i nformation, please contact: Trae Byrne [address] [place] [address] Date Inactivated Comments Code Status Date Activated 12/08/2017 4:31 PM Full Code 12/07/2017 5:42 PM Code Status decision reached by: Patient
[2019-02-19] MEDS ORDERED: BACITRACIN ZINC 0.9GM TP ONE (07:17)
[2019-02-19] MEDS ORDERED: TETANUS/DIPHTHERIA TOX ADULT 0.5 ML SYR ONE (07:17)
[2019-02-19] MEDS ORDERED: LIDOCAINE 2%/ EPINEPHRINE 20ML MDV INJ ONE (08:30)
[2019-02-19] MEDS ORDERED: TETANUS/DIPHTHERIA TOX ADULT 0.5 ML SYR IM ONE (08:30)
[2019-02-19] MEDS ORDERED: BACITRACIN 50,000 UNIT VIAL IM ONE (08:30)
== END 2019-02-19 08:15 | disposition home or self-care (01) ==
LOC: FSED 07:00
DX: S61.211A Laceration without foreign body of left index finger without damage to nail, initial encounter (principal); S61.412A Laceration without foreign body of left hand, initial encounter; W26.0XXA Contact with knife, initial encounter; Y93.G3 Activity, cooking and baking; Y92.000 Kitchen of unspecified non-institutional (private) residence as the place of occurrence of the external cause; Z23 Encounter for immunization
CPT/HCPCS: 12002; 90471; 90714; 99283; J2001